=== PATIENT | female | born 1955 | race Caucasian/White ===

== ENCOUNTER 2018-04-02 12:32 | Inpatient (IN) | payer MEDICARE ==
[~2018-04-02] VITALS: Ht 165.1 cm; Wt 74.0 kg
[~2018-04-02 12:32] MED LIST: ASPI81TA27 PO; CLON2TAB3 PO; DIVA250T3 PO; DULO20CA PO; GABA100C9 PO; KEP500T PO; LAMO200T34 PO; LOSA25TA9 PO; METO-159 PO; NITR-48 PO; OMEP20CA74 PO; OXYC325T14 PO; PHE100C PO; QUET400T12 PO; RISP2TAB62 PO; SIMV-8 PO
[2018-04-02] MEDS ORDERED: SODIUM CHLORIDE 0.9% 1,000 ML IV ONE (13:14)
[2018-04-02] MEDS ORDERED: PIPERACILLIN-TAZOB 3.375GM 100 ML IV ONE ×2 (13:15→16:45)
[2018-04-02 14:47] LABS: Basophils # (auto) 0.1 uL; Basophils % (auto) 0.5 % (0.0-2.0); Eosinophils # (auto) 0.2 uL; Eosinophils % (auto) 1.4 % (0.0-7.0); Hematocrit 43.4 % (36.0-46.0); Hemoglobin 14.4 g/dL (12.2-16.2); Lymphocytes # (auto) 1.5 uL; Lymphocytes % (auto) 12.5 % (10.0-50.0); Mean Corpuscular Hemoglobin 30.8 pg (28.0-32.0); Mean Corpuscular Hgb Conc. 33.2 g/dL (32.0-36.0); Monocytes # (auto) 0.8 uL; Monocytes % (auto) 6.5 % (0.0-12.0); Neutrophils # (auto) 9.2 uL; Neutrophils % (auto) 79.1 % (37.0-80.0); Platelet Count (auto) 330 10^3/uL (140-450); Red Blood Cells 4.66 10^6/uL (4.0-5.20); Red Cell Distribution Width 13.5 % (11.8-14.3); White Blood Cell 11.6 10^3/uL (4.4-10.8)
[2018-04-02] MEDS ORDERED: IOHEXOL 300 MG/ML 100ML BOTTLE IJ ONE (14:52)
[2018-04-02 15:06] LABS: Alanine Aminotransferase 14 U/L (13-56); Albumin 3.8 g/dL (3.4-5.0); Alkaline Phosphatase 157 U/L (45-117); Anion Gap 8 (5-15); Aspartate Aminotransferase 16 U/L (15-37); BUN/Creatinine Ratio 6.8; Bilirubin, Total 0.5 mg/dL (0.2-1.0); Blood Urea Nitrogen 3 mg/dL (7-18); Calcium 10.2 mg/dL (8.5-10.1); Carbon Dioxide 23 mmol/L (21-32); Chloride 103 mmol/L (98-107); GFR African American 186 mL/min; GFR Non-African American 154 mL/min; Glucose 105 mg/dL (74-106); Sodium 134 mmol/L (136-145); Total Protein 7.1 g/dL (6.4-8.2)
[2018-04-02] MEDS ORDERED: LORazepam 2MG/ML-1ML VIAL IV PRN (16:30)
[2018-04-02] MEDS ORDERED: CLINDAMYCIN 300MG IV 50 ML IV ONE (16:30)
[2018-04-02] MEDS ORDERED: NICOTINE 14 MG/24HR TOPICAL PATCH TD ONE (16:30)
[2018-04-02] MEDS ORDERED: NALBUPHINE HCL 10 MG/1ml INJECTION IV PRN ×2 (16:30→18:15)
[2018-04-02] MEDS ORDERED: HYDROcodone-ACET 5/325MG TAB PO PRN (16:30)
[2018-04-02] MEDS ORDERED: TEMAZEPAM 15 MG CAP PO PRN (16:45)
[2018-04-02] MEDS ORDERED: ACETAMINOPHEN 325 MG TAB PO PRN (16:45)
[2018-04-02] MEDS ORDERED: NITROGLYCERIN 0.4 MG SL TAB SL PRN (16:45)
[2018-04-02] MEDS ORDERED: MORPHINE SULFATE 8mg/ml INJ SDV IV PRN ×2 (16:45)
[2018-04-02] MEDS ORDERED: ONDANSETRON HCL 4 MG/2 ML VIAL IV PRN (16:45)
[2018-04-02] MEDS ORDERED: DOCUSATE SOD 100 MG CAP PO PRN (16:45)
[2018-04-02 18:40] LABS: INR 1.01 (0.9-1.15); Partial Thromboplastin Time 31.9 sec (23.78-33.04); Prothrombin Time 10.8 sec (9.27-12.13)
[2018-04-02] MEDS: risperiDONE 1 MG TAB PO SCH (19:20)
[2018-04-02] MEDS: clonazePAM 0.5 MG TAB PO SCH (22:00)
[2018-04-02] MEDS: PHENYTOIN SODIUM 100 MG CAP PO SCH (22:18)
[2018-04-02] MEDS: SODIUM CHLOR 0.9% PF (SALINE LOCK) 10ML VIAL/SYR IV SCH (22:18)
[2018-04-02] MEDS: CLINDAMYCIN 300MG IV 50 ML IV SCH (22:18)
[2018-04-02] MEDS: lamoTRIgine 100 MG TAB PO SCH (22:19)
[2018-04-02] MEDS: LEVETIRACETAM 500 MG TAB PO SCH (22:19)
[2018-04-02] MEDS: ATORVASTATIN 20 MG TAB PO SCH (22:19)
[2018-04-02] MEDS: SILVER SULFADIAZINE 1 % TOPICAL CREAM 50GM TOP SCH (22:20)
[2018-04-02] MEDS: ASCORBIC ACID 500 MG TAB PO SCH (22:20)
[2018-04-02] MEDS: QUEtiapine FUMARATE 100 MG TAB PO SCH (22:23)
[2018-04-02] MEDS: METOPROLOL TARTRATE 50 MG TAB PO SCH (22:24)
[2018-04-02] MEDS: GABAPENTIN 100 MG CAP PO SCH (22:24)
[2018-04-02] MEDS: FAMOTIDINE 20 MG TAB PO SCH (22:24)
[2018-04-02 22:55] VITALS: BP 138/82
[2018-04-02] MEDS: PIPERACILLIN-TAZOB 3.375GM 100 ML IV SCH (23:54)
[2018-04-03] MEDS: HYDROcodone-ACET 5/325MG TAB PO PRN ×3 (02:54→21:57)
[2018-04-03] MEDS: CLINDAMYCIN 300MG IV 50 ML IV SCH ×3 (05:29→22:02)
[2018-04-03] MEDS: PIPERACILLIN-TAZOB 3.375GM 100 ML IV SCH ×4 (05:30→23:50)
[2018-04-03] MEDS: GABAPENTIN 100 MG CAP PO SCH ×3 (05:30→21:54)
[2018-04-03] MEDS: SODIUM CHLOR 0.9% PF (SALINE LOCK) 10ML VIAL/SYR IV SCH ×3 (05:30→22:06)
[2018-04-03 05:37] VITALS: BP 134/79
[2018-04-03 06:25] LABS: Basophils # (auto) 0 uL; Basophils % (auto) 0.3 % (0.0-2.0); Eosinophils # (auto) 0.1 uL; Eosinophils % (auto) 0.6 % (0.0-7.0); Hemoglobin 12.5 g/dL (12.2-16.2); Lymphocytes # (auto) 3.2 uL; Lymphocytes % (auto) 22.9 % (10.0-50.0); Mean Corpuscular Hemoglobin 31.1 pg (28.0-32.0); Mean Corpuscular Hgb Conc. 32.8 g/dL (32.0-36.0); Mean Corpuscular Volume 94.9 fL (80.0-100.0); Monocytes # (auto) 1.1 uL; Monocytes % (auto) 8.1 % (0.0-12.0); Neutrophils # (auto) 9.5 uL; Neutrophils % (auto) 68.1 % (37.0-80.0); Platelet Count (auto) 308 10^3/uL (140-450); Red Blood Cells 4.01 10^6/uL (4.0-5.20); Red Cell Distribution Width 13.2 % (11.8-14.3)
[2018-04-03 06:49] LABS: Albumin 3.1 g/dL (3.4-5.0); BUN/Creatinine Ratio 8.3; Bilirubin, Total 0.3 mg/dL (0.2-1.0); Calcium 9.3 mg/dL (8.5-10.1); Potassium 3.5 mmol/L (3.5-5.1); Total Protein 5.9 g/dL (6.4-8.2)
[2018-04-03] MEDS: risperiDONE 1 MG TAB PO SCH ×2 (08:14→18:39)
[2018-04-03 09:00] VITALS: BP 134/85
[2018-04-03] MEDS: MELOXICAM 7.5MG TAB PO SCH (10:00)
[2018-04-03] MEDS: clonazePAM 0.5 MG TAB PO SCH ×2 (10:00→21:55)
[2018-04-03] MEDS: ASCORBIC ACID 500 MG TAB PO SCH ×2 (10:05→21:55)
[2018-04-03] MEDS: lamoTRIgine 100 MG TAB PO SCH ×2 (10:05→21:56)
[2018-04-03] MEDS: ZINC SULFATE 220 MG CAP PO SCH (10:05)
[2018-04-03] MEDS: MULTIPLE VITAMIN TAB PO SCH (10:05)
[2018-04-03] MEDS: FAMOTIDINE 20 MG TAB PO SCH ×2 (10:05→21:53)
[2018-04-03] MEDS: PANTOPRAZOLE 40 MG TAB PO SCH (10:05)
[2018-04-03] MEDS: DULoxetine HCL 30 MG CAP PO SCH (10:05)
[2018-04-03] MEDS: LOSARTAN POTASSIUM 25 MG TAB PO SCH (10:06)
[2018-04-03] MEDS: PHENYTOIN SODIUM 100 MG CAP PO SCH ×2 (10:06→21:56)
[2018-04-03] MEDS: ASPirin-EC 81 mg tab PO SCH (10:06)
[2018-04-03] MEDS: SILVER SULFADIAZINE 1 % TOPICAL CREAM 50GM TOP SCH (10:07)
[2018-04-03] MEDS: LEVETIRACETAM 500 MG TAB PO SCH ×2 (10:07→22:11)
[2018-04-03] MEDS: METOPROLOL TARTRATE 50 MG TAB PO SCH ×2 (10:07→21:57)
[2018-04-03] MEDS: NICOTINE 14 MG/24HR TOPICAL PATCH TD SCH (10:43)
[2018-04-03 13:00] VITALS: BP 130/82
[2018-04-03] MEDS: BACITRACIN-POLYMYXIN B OPTH(EYE) OINT 3.5GM OP SCH ×2 (14:00→22:00)
[2018-04-03] MEDS: BACITRACIN-POLYMYXIN B TOPICAL OINT UD TOP SCH ×2 (14:29→22:10)
[2018-04-03 17:00] VITALS: BP 140/79
[2018-04-03 20:00] VITALS: BP 116/76
[2018-04-03] MEDS: ATORVASTATIN 20 MG TAB PO SCH (21:55)
[2018-04-03 22:00] VITALS: BP 116/76
[2018-04-03] MEDS: QUEtiapine FUMARATE 100 MG TAB PO SCH (22:11)
[2018-04-04 05:00] VITALS: BP 116/67
[2018-04-04] MEDS: CLINDAMYCIN 300MG IV 50 ML IV SCH (05:12)
[2018-04-04] MEDS: BACITRACIN-POLYMYXIN B OPTH(EYE) OINT 3.5GM OP SCH ×3 (06:00→22:19)
[2018-04-04] MEDS: SODIUM CHLOR 0.9% PF (SALINE LOCK) 10ML VIAL/SYR IV SCH ×3 (06:30→22:03)
[2018-04-04] MEDS: PIPERACILLIN-TAZOB 3.375GM 100 ML IV SCH (06:31)
[2018-04-04] MEDS: GABAPENTIN 100 MG CAP PO SCH ×3 (06:31→21:22)
[2018-04-04] MEDS: BACITRACIN-POLYMYXIN B TOPICAL OINT UD TOP SCH ×3 (06:31→22:01)
[2018-04-04] MEDS: HYDROcodone-ACET 5/325MG TAB PO PRN ×4 (06:32→22:20)
[2018-04-04 08:30] VITALS: BP 122/71
[2018-04-04] MEDS: risperiDONE 1 MG TAB PO SCH ×2 (08:35→18:40)
[2018-04-04 09:28] LABS: Urine Bacteria MOD /hpf (None Seen); Urine Blood Negative /uL (Negative); Urine Specific Gravity 1.006 (1.001-1.035); Urine WBC 197 /hpf (0 - 5)
[2018-04-04] MEDS ORDERED: BACITRACIN-POLYMYXIN B OPTH(EYE) OINT 3.5GM OP ONE (09:45)
[2018-04-04] MEDS: MELOXICAM 7.5MG TAB PO SCH (10:00)
[2018-04-04] MEDS: clonazePAM 0.5 MG TAB PO SCH ×2 (10:00→21:22)
[2018-04-04] MEDS: ZINC SULFATE 220 MG CAP PO SCH (10:26)
[2018-04-04] MEDS: FAMOTIDINE 20 MG TAB PO SCH (10:26)
[2018-04-04] MEDS: DULoxetine HCL 30 MG CAP PO SCH (10:27)
[2018-04-04] MEDS: PHENYTOIN SODIUM 100 MG CAP PO SCH ×2 (10:28→22:02)
[2018-04-04] MEDS: ASPirin-EC 81 mg tab PO SCH (10:28)
[2018-04-04] MEDS: MULTIPLE VITAMIN TAB PO SCH (10:28)
[2018-04-04] MEDS: ASCORBIC ACID 500 MG TAB PO SCH ×2 (10:29→21:22)
[2018-04-04] MEDS: PANTOPRAZOLE 40 MG TAB PO SCH (10:29)
[2018-04-04] MEDS: METOPROLOL TARTRATE 50 MG TAB PO SCH ×2 (10:29→22:03)
[2018-04-04] MEDS: lamoTRIgine 100 MG TAB PO SCH ×2 (10:30→21:23)
[2018-04-04] MEDS: LOSARTAN POTASSIUM 25 MG TAB PO SCH (10:30)
[2018-04-04] MEDS: LEVETIRACETAM 500 MG TAB PO SCH ×2 (10:31→22:03)
[2018-04-04] MEDS: NICOTINE 14 MG/24HR TOPICAL PATCH TD SCH (10:32)
[2018-04-04] MEDS ORDERED: LEVOFLOXACIN 500 MG TAB PO ONE (14:30)
[2018-04-04 17:43] VITALS: BP 120/77
[2018-04-04 20:00] VITALS: BP 133/82
[2018-04-04 22:00] VITALS: BP 133/82
[2018-04-04] MEDS: QUEtiapine FUMARATE 100 MG TAB PO SCH (22:02)
[2018-04-04] MEDS: ATORVASTATIN 20 MG TAB PO SCH (22:02)
[2018-04-05 05:00] VITALS: BP 109/71
[2018-04-05] MEDS: HYDROcodone-ACET 5/325MG TAB PO PRN (05:42)
[2018-04-05] MEDS: GABAPENTIN 100 MG CAP PO SCH ×2 (05:42→15:45)
[2018-04-05] MEDS: BACITRACIN-POLYMYXIN B OPTH(EYE) OINT 3.5GM OP SCH ×2 (05:42→15:45)
[2018-04-05] MEDS: SODIUM CHLOR 0.9% PF (SALINE LOCK) 10ML VIAL/SYR IV SCH ×2 (06:29→14:00)
[2018-04-05] MEDS: BACITRACIN-POLYMYXIN B TOPICAL OINT UD TOP SCH ×2 (06:29→15:45)
[2018-04-05 08:54] VITALS: BP_SYST 106; BP_SYST 130; BP_DIAS 68; BP_DIAS 69
[2018-04-05] MEDS: risperiDONE 1 MG TAB PO SCH (09:08)
[2018-04-05] MEDS ORDERED: LEVOFLOXACIN 500 MG TAB PO SCH (10:00)
[2018-04-05] MEDS: ZINC SULFATE 220 MG CAP PO SCH (10:47)
[2018-04-05] MEDS: DULoxetine HCL 30 MG CAP PO SCH (10:47)
[2018-04-05] MEDS: PHENYTOIN SODIUM 100 MG CAP PO SCH (10:48)
[2018-04-05] MEDS: ASPirin-EC 81 mg tab PO SCH (10:48)
[2018-04-05] MEDS: LEVETIRACETAM 500 MG TAB PO SCH (10:49)
[2018-04-05] MEDS: lamoTRIgine 100 MG TAB PO SCH (10:51)
[2018-04-05] MEDS: clonazePAM 0.5 MG TAB PO SCH (10:51)
[2018-04-05] MEDS: MULTIPLE VITAMIN TAB PO SCH (10:52)
[2018-04-05] MEDS: PANTOPRAZOLE 40 MG TAB PO SCH (10:52)
[2018-04-05] MEDS: ASCORBIC ACID 500 MG TAB PO SCH (10:52)
[2018-04-05] MEDS: NICOTINE 14 MG/24HR TOPICAL PATCH TD SCH (10:53)
[2018-04-05] MEDS: METOPROLOL TARTRATE 50 MG TAB PO SCH (11:09)
[2018-04-05] MEDS: LOSARTAN POTASSIUM 25 MG TAB PO SCH (11:09)
[2018-04-05 12:35] VITALS: BP 133/82
[2018-04-05 12:41] VITALS: BP_SYST 120; BP_SYST 133; BP_DIAS 79; BP_DIAS 82
[2018-04-05 15:22] VITALS: BP 133/82
== END 2018-04-05 16:10 | DRG 935 ==
LOC: ER 12:32 → EDBD 12:32 → TELE 12:33 → TELE-WESTW 17:59 → WEST WING 04-04 15:41
PROVIDERS: ADMIT Internal Medicine; ATTEND Internal Medicine
DX: T20.20XA Burn of second degree of head, face, and neck, unspecified site, initial encounter (principal); E87.1 Hypo-osmolality and hyponatremia; N39.0 Urinary tract infection, site not specified; L03.211 Cellulitis of face; I69.351 Hemiplegia and hemiparesis following cerebral infarction affecting right dominant side; E83.52 Hypercalcemia; T20.211A Burn of second degree of right ear [any part, except ear drum], initial encounter; F20.9 Schizophrenia, unspecified; F41.9 Anxiety disorder, unspecified; G40.909 Epilepsy, unspecified, not intractable, without status epilepticus; X08.8XXA Exposure to other specified smoke, fire and flames, initial encounter; I11.9 Hypertensive heart disease without heart failure; T31.0 Burns involving less than 10% of body surface; F31.9 Bipolar disorder, unspecified; I25.10 Atherosclerotic heart disease of native coronary artery without angina pectoris; G93.89 Other specified disorders of brain; F03.90 Unspecified dementia, unspecified severity, without behavioral disturbance, psychotic disturbance, mood disturbance, and anxiety; Z90.49 Acquired absence of other specified parts of digestive tract; Y93.G2 Activity, grilling and smoking food; Z90.710 Acquired absence of both cervix and uterus; Y92.89 Other specified places as the place of occurrence of the external cause; Y99.8 Other external cause status
CPT/HCPCS: 16020; 36415; 70487; 71045; 80053; 81001; 83605; 83880; 84443; 84484; 85025; 85610; 85730; 87040; 87086; 87088; 87186; 93306; 93886; 96374; 96375; 97163; J2405; J2543; J3490